=== PATIENT | female | born 1995 | race Caucasian/White ===

== ENCOUNTER → 2017-10-21 | Outpatient (CLI) | payer OTHER | LOC: LAB SHORT 15:40 → LAB 15:40 | DX: Z32.01 Encounter for pregnancy test, result positive (principal) | CPT/HCPCS: 84702 ==

== ENCOUNTER 2018-06-18 20:50 | Inpatient (IN) | payer OTHER, BC ==
[~2018-06-18] VITALS: Ht 149.9 cm; Wt 58.9 kg
[2018-06-18 22:56] LABS: BASOPHILS ABSOLUTE AUTO 0.04 K/mm3 (0.00-0.23); BASOPHILS PERCENT AUTO 0 % (0-2); EOSINOPHILS ABSOLUTE AUTO 0.09 K/mm3 (0.00-0.68); EOSINOPHILS PERCENT AUTO 1 % (0-6); Hematocrit 37.7 % (33.0-51.0); Hemoglobin 12.7 g/dL (11.5-16.0); IMMATURE GRAN ABSOLUTE AUTO 0.05 K/mm3 (0.00-0.10); IMMATURE GRAN PERCENT AUTO 0 % (0-1); LYMPHOCYTES ABSOLUTE AUTO 2.82 K/mm3 (0.84-5.20); LYMPHOCYTES PERCENT AUTO 22 % (21-46); MONOCYTES ABSOLUTE AUTO 0.69 K/mm3 (0.16-1.47); MONOCYTES PERCENT AUTO 6 % (4-13); Mean Corpuscular HGB 29.7 pg (26.0-34.0); Mean Corpuscular HGB Conc 33.7 g/dL (31.5-36.5); Mean Corpuscular Volume 88 fL (80-100); Mean Platelet Volume 12.3 fL (9.1-12.4); NEUTROPHILS ABSOLUTE AUTO 8.92 K/mm3 (1.96-9.15); NEUTROPHILS PERCENT AUTO 71 % (41-73); Platelet Count 199 K/mm3 (150-400); RDW Coefficient Variation 12.4 % (11.7-14.2); RDW Standard Deviation 39.5 fL (35.1-46.3); Red Blood Cell Count 4.28 M/mm3 (3.80-5.20); White Blood Cell Count 12.61 K/mm3 (4.00-11.30)
[2018-06-18] MEDS ORDERED: TUMS200 MG (23:45)
[2018-06-18] MEDS ORDERED: ASCO500 PO (23:45)
[2018-06-18] MEDS ORDERED: Verotin-Gr Cap1 EACH PO (23:45)
[2018-06-20 00:31] LABS: PCO2 Cord - Arterial 53.5 mmHg (40-50); PO2 Cord - Arterial < 12 mmHg (16-20); pH Cord - Arterial 7.26 (7.28-7.35)
[2018-06-20 00:33] LABS: PCO2 Cord - Venous 46.4 mmHg (40-50); PO2 Cord - Venous 17 mmHg (28-32); pH Umbilical Cord - Venous 7.31 (7.26-7.35)
--- NOTE | 2018-06-20 00:36 | NUR ---
06/20/18 0036 Angella Gramajo PATIENT ARRIVED TO OR WITH ANDERSON CATH IN PLACE. PATIENT ARRIVED TO OR WITH EPIDURAL IN PLACE. BABY GIRL BORN AT 0014. APGARS FIRST AND SECOND 9-9. CORD BLOOD SENT WITH YASSINE MANCUSO RN. CORD SEGMENT SENT WITH RT JUANCHO.
[2018-06-20 08:58] LABS: Hematocrit 29.8 % (33.0-51.0); Mean Corpuscular HGB 29.2 pg (26.0-34.0); Mean Corpuscular HGB Conc 33.6 g/dL (31.5-36.5); Mean Corpuscular Volume 87 fL (80-100); Mean Platelet Volume 12.5 fL (9.1-12.4); Platelet Count 154 K/mm3 (150-400); RDW Coefficient Variation 12.5 % (11.7-14.2); RDW Standard Deviation 39.5 fL (35.1-46.3); Red Blood Cell Count 3.42 M/mm3 (3.80-5.20); White Blood Cell Count 12.61 K/mm3 (4.00-11.30)
--- NOTE | 2018-06-20 15:20 | NUR ---
PT UP TO SHOWER. MEDIPORE DRESSING REMOVED. STERI STRIPS CLEAN, DRY, INTACT. NO REDNESS OR SWELLING AT INCISION SITE. ANDERSON CATHETER REMOVED.
--- NOTE | 2018-06-20 16:50 | NUR ---
FIRST PP VOID.
--- NOTE | 2018-06-20 21:28 | NUR ---
PATIENT STATES IV SITE HAS BEEN TENDER SINCE INSERTION
--- NOTE | 2018-06-21 10:39 | NUR ---
ASSIST BABY WASABLE TO MALLORY KEEN RN ASSIST.
[2018-06-21] MEDS ORDERED: Percocet 5-3251 EACH PO (12:24)
[2018-06-21] MEDS ORDERED: IBUP800 PO (12:25)
--- NOTE | 2018-06-21 14:34 | NUR ---
DISCHARGE INSTRUCTIONS, WRITTEN AND VERBAL, GIVEN TO PT AND . ALL QUESTIONS AND CONCERNS ANSWERED. ALL PERSONAL BELONGINGS RETURNED. IV DISCONTNUED D/T INFILTRATION AT [facility]ON IV ANTIBIOTICS. LAST, 6TH DOSE, NOT GIVEN. VERBAL FROM Calvin LEAVITT CNM OK TO NOT GIVE AND NOT START NEW IV. FOLLOW UP APPOINTMENT SCHEDULE. PATIENT TO BE DRIVEN HOME BY , KWAME. PT IS DISCHARGED.
== END 2018-06-21 14:55 | disposition home or self-care (01) | DRG 788 ==
LOC: BC 20:50
PROVIDERS: Obstetrics & Gynecology; ADMIT Nurse Practitioner Obstetrics & Gynecology
PROC: 10D00Z1 Extraction of Products of Conception, Low, Open Approach (ICD-10-PCS; principal; 2018-06-20)
PROC: 3E0P7VZ Introduction of Hormone into Female Reproductive, Via Natural or Artificial Opening (ICD-10-PCS; 2018-06-20)
PROC: 3E0R3BZ Introduction of Anesthetic Agent into Spinal Canal, Percutaneous Approach (ICD-10-PCS; 2018-06-20)
DX: O14.04 Mild to moderate pre-eclampsia, complicating childbirth (principal); O76 Abnormality in fetal heart rate and rhythm complicating labor and delivery; O36.5930 Maternal care for other known or suspected poor fetal growth, third trimester, not applicable or unspecified; Z3A.39 39 weeks gestation of pregnancy; Z37.0 Single live birth; O69.81X0 Labor and delivery complicated by cord around neck, without compression, not applicable or unspecified
CPT/HCPCS: 36415; 51702; 82803; 85025; 85027; 86850; 86900; 86901; J0690; J1885; J2270; J2274; J2370; J2405; J2550; J2590; J2765; J7120

== ENCOUNTER 2020-07-14 05:21 | Inpatient (IN) | payer BC, OTHER ==
[~2020-07-14] VITALS: Ht 149.9 cm; Wt 62.7 kg
[~2020-07-14 05:21] MED LIST: ASCO500 PO; IBUP800 PO; Percocet 5-3251 EACH PO; TUMS200 MG; Verotin-Gr Cap1 EACH PO; Vitamin C100 M1
[2020-07-14 06:02] LABS: BASOPHILS ABSOLUTE AUTO 0.03 K/mm3 (0.00-0.23); BASOPHILS PERCENT AUTO 0 % (0-2); EOSINOPHILS ABSOLUTE AUTO 0.07 K/mm3 (0.00-0.68); EOSINOPHILS PERCENT AUTO 1 % (0-6); Hematocrit 39.5 % (33.0-51.0); Hemoglobin 13.2 g/dL (11.5-16.0); IMMATURE GRAN ABSOLUTE AUTO 0.04 K/mm3 (0.00-0.10); IMMATURE GRAN PERCENT AUTO 0 % (0-1); LYMPHOCYTES ABSOLUTE AUTO 2.11 K/mm3 (0.84-5.20); LYMPHOCYTES PERCENT AUTO 22 % (21-46); MONOCYTES ABSOLUTE AUTO 0.52 K/mm3 (0.16-1.47); MONOCYTES PERCENT AUTO 5 % (4-13); Mean Corpuscular HGB 28.5 pg (26.0-34.0); Mean Corpuscular HGB Conc 33.4 g/dL (31.5-36.5); Mean Corpuscular Volume 85 fL (80-100); Mean Platelet Volume 12.6 fL (9.1-12.4); NEUTROPHILS ABSOLUTE AUTO 6.93 K/mm3 (1.96-9.15); NEUTROPHILS PERCENT AUTO 71 % (41-73); Platelet Count 206 K/mm3 (150-400); RDW Coefficient Variation 12.3 % (11.7-14.2); Red Blood Cell Count 4.63 M/mm3 (3.80-5.20)
--- NOTE | 2020-07-14 08:04 | NUR ---
07/14/20 0804 Kat Chavarria 0757 DELIVERY VIABLE MALE , WEIGHT 7# [id number], HEAD 14 INCHES, CHEST 13 INCHES, LENGTH 21 INCHES, 9/9, UMBILICAL CORD SEGMENT SENT W/ RT FOR CORD GASES, UMBILCAL CORD BLOOD COLLECTED FOR TYPE AND RH GIVEN TO RN
[2020-07-14 08:21] LABS: PCO2 Cord - Arterial 51.4 mmHg (40-50); PO2 Cord - Arterial < 16 mmHg (16-20); pH Cord - Arterial 7.27 (7.28-7.35)
[2020-07-14 08:25] LABS: PCO2 Cord - Venous 40.5 mmHg (40-50); PO2 Cord - Venous 23.5 mmHg (28-32); pH Umbilical Cord - Venous 7.37 (7.26-7.35)
[2020-07-15 05:07] LABS: BASOPHILS ABSOLUTE AUTO 0.04 K/mm3 (0.00-0.23); BASOPHILS PERCENT AUTO 0 % (0-2); EOSINOPHILS ABSOLUTE AUTO 0.06 K/mm3 (0.00-0.68); EOSINOPHILS PERCENT AUTO 1 % (0-6); Hematocrit 34.1 % (33.0-51.0); Hemoglobin 11.1 g/dL (11.5-16.0); IMMATURE GRAN ABSOLUTE AUTO 0.03 K/mm3 (0.00-0.10); IMMATURE GRAN PERCENT AUTO 0 % (0-1); LYMPHOCYTES ABSOLUTE AUTO 1.79 K/mm3 (0.84-5.20); LYMPHOCYTES PERCENT AUTO 18 % (21-46); MONOCYTES ABSOLUTE AUTO 0.46 K/mm3 (0.16-1.47); MONOCYTES PERCENT AUTO 5 % (4-13); Mean Corpuscular HGB 28.4 pg (26.0-34.0); Mean Corpuscular HGB Conc 32.6 g/dL (31.5-36.5); Mean Corpuscular Volume 87 fL (80-100); Mean Platelet Volume 12.4 fL (9.1-12.4); NEUTROPHILS ABSOLUTE AUTO 7.84 K/mm3 (1.96-9.15); NEUTROPHILS PERCENT AUTO 77 % (41-73); Platelet Count 154 K/mm3 (150-400); RDW Coefficient Variation 12.6 % (11.7-14.2); RDW Standard Deviation 39.9 fL (35.1-46.3); Red Blood Cell Count 3.91 M/mm3 (3.80-5.20); White Blood Cell Count 10.22 K/mm3 (4.00-11.30)
[2020-07-15] MEDS ORDERED: DOCU100 PO (13:13)
[2020-07-15] MEDS ORDERED: IBUP800 PO (13:14)
[2020-07-15] MEDS ORDERED: Percocet 5-3251 EACH PO (13:14)
--- NOTE | 2020-07-15 17:14 | NUR ---
pt already has pt portal account.
--- NOTE | 2020-07-15 17:15 | NUR ---
pt & s/o given written dc instructions. verbalize understanding. will follow up as scheduled with dr simmons as well as here friday at 11:00 for ppfu. questions answered
== END 2020-07-16 10:15 | disposition home or self-care (01) | DRG 788 ==
LOC: BC 05:21 → SURS 07:30 → BC 11:25
PROVIDERS: ADMIT Obstetrics & Gynecology
PROC: 10D00Z1 Extraction of Products of Conception, Low, Open Approach (ICD-10-PCS; principal; 2020-07-14 07:30)
DX: O34.211 Maternal care for low transverse scar from previous cesarean delivery (principal); O13.4 Gestational [pregnancy-induced] hypertension without significant proteinuria, complicating childbirth; Z37.0 Single live birth; Z3A.40 40 weeks gestation of pregnancy
CPT/HCPCS: 0241U; 36415; 82803; 85025; 86850; 86900; 86901; A9270; J0690; J1885; J2405; J2590; J2765; J7120